=== PATIENT | female | born 1970 | race American Indian/Alaskan Native ===

== ENCOUNTER 2017-11-16 16:24 | Outpatient (CLI) | payer OTHER ==
[~2017-11-16 16:24] MED LIST: LEVO50TA67 PO; NO HOME MEDS
== END 2017-11-16 23:59 | disposition home or self-care (01) ==
LOC: 64 CT 16:24
PROVIDERS: ATTEND Obstetrics & Gynecology
DX: H81.13 Benign paroxysmal vertigo, bilateral (principal)
CPT/HCPCS: 70450